=== PATIENT | female | born 1950 ===

== ENCOUNTER 2016-11-19 22:12 | Inpatient (IN) | payer MEDICARE, OTHER ==
[2016-11-19] MEDS ORDERED: HYOSCYAMINE SULFATE ODT 0.125 MG TAB.SUBL SL ONE (22:40)
[2016-11-19] MEDS ORDERED: KETOROLAC 30 MG/ML VIAL IVP ONE (22:40)
--- NOTE | 2016-11-19 22:41 | Emergency Department Record ---
History of Present Illness - General Chief Complaint: Abdominal Pain Stated Complaint: LOWER LT ABDOMINAL PAIN Time Seen by Provider: 11/19/16 22:17 Source: Patient Mode of Arrival: Ambulatory Limitations: No limitations - History of Present Illness Initial Comments: 66 yo female presents to ED with a CC of worsening LLQ abdominal pain that began 2-3 days ago intermittently, but worsened this afternoon. Patient reports previous episodes of diverticulitis resulting in abscess several years ago, treated with IV antibiotics as IV drainage was not possible. Patient denies fevers, chills, or change in stools. MD Complaint: Abdominal pain Onset/Timin -: Hour(s) Location: LLQ Radiation: Back Migration to: No migration Severity: Moderate Quality: Aching Consistency: Constant Improves With: Nothing Worsens With: Nothing Associated Symptoms: Denies other symptoms - Related Data Patient : No Home Medications Medication Instructions Recorded Confirmed Last Taken Alendronate Sodium [Alendronate 11/19/16 Unknown Sodium] Amitriptyline HCl [Amitriptyline 11/19/16 Unknown HCl] Celecoxib [Celecoxib] 11/19/16 Unknown Hydrochlorothiazide 11/19/16 Unknown [Hydrochlorothiazide] Hydrocodone/Acetaminophen 11/19/16 Unknown [Hydrocodon-Acetaminophen 5-325] Levalbuterol Tartrate [Xopenex Hfa] 11/19/16 11/19/16 Unknown Losartan Potassium [Losartan 11/19/16 Unknown Potassium] Mirabegron [Myrbetriq] 11/19/16 Unknown Omeprazole [Prilosec] 11/19/16 Unknown Trazodone HCl [Desyrel] 11/19/16 Unknown Allergies Allergy/AdvReac Type Severity Reaction Status Date / Time ciprofloxacin [From Cipro] Allergy ANAPHYLAXIS Verified 11/19/16 22:23 ciprofloxacin HCl Allergy ANAPHYLAXIS Verified 11/19/16 22:23 [From Cipro] hydromorphone HCl Allergy PT UNSURE Verified 11/19/16 22:23 [From Dilaudid] OF REACTION levofloxacin [From Levaquin] Allergy ANAPHYLAXIS Verified 11/19/16 22:23 Penicillins Allergy PT UNSURE Verified 11/19/16 22:23 OF REACTION sumatriptan [From Imitrex] Allergy PT UNSURE Verified 11/19/16 22:23 OF REACTION sumatriptan succinate Allergy PT UNSURE Verified 11/19/16 22:23 [From Imitrex] OF REACTION Travel Screening - Travel/Exposure Within Last 30 Days Have you traveled within the last 30 days?: No - Travel/Exposure Within Last Year Have you traveled outside the [place] in the last year?: No - Additonal Travel Details Have you been exposed to anyone with a communicable illness?: No - Travel Symptoms Symptom Screening: None Review of Systems Constitutional: Denies: Chills, Fever, Malaise, Night sweats Eyes: Denies: Eye discharge, Eye pain ENT: Denies: Congestion, Ear pain, Epistaxis Respiratory: Denies: Cough, Dyspnea Cardiovascular: Denies: Chest pain, Dyspnea on exertion Endocrine: Denies: Fatigue, Heat or cold intolerance Gastrointestinal: Reports: Abdominal pain. Denies: Constipation, Nausea, Vomiting Genitourinary: Denies: Dysuria, Frequency, Hematuria, Incontinence Musculoskeletal: Denies: Arthralgia, Back pain, Gout, Joint swelling Skin: Denies: Lesions, Pruritus Neurological: Denies: Abnormal gait, Confusion, Headache, Seizure Psychiatric: Denies: Anxiety Hematological/Lymphatic: Denies: Anemia, Blood Clots Past Medical History - SOCIAL HISTORY Smoking Status: Never smoker Alcohol Use: None Drug Use: None - RESPIRATORY Hx Respiratory Disorders: Yes Hx Asthma: Yes (SEASONAL ALLERGIES, WHEEZES) - CARDIOVASCULAR Hx Cardio Disorders: Yes Hx Heart Attack: Yes (STATES VERY SMALL [place] DX WHEN HX OF HEART CATH 10 YRS AGO) Hx Hypertension: Yes - NEURO Hx Neuro Disorders: No - GI Hx GI Disorders: Yes Hx Diverticulitis: Yes Hx Reflux: Yes Hx Hiatal Hernia: Yes - Hx Genitourinary Disorders: No - ENDOCRINE Hx Endocrine Disorders: No - MUSCULOSKELETAL Hx Musculoskeletal Disorders: Yes Hx Arthritis: Yes (SEVERE LOW BACK PAIN, FACET SYNDROME INTERMITTENT NUMBNESS LF UPPER THIGH) - PSYCH Hx Psych Problems: No - HEMATOLOGY/ONCOLOGY Hx Hematology/Oncology Disorders: No Family Medical History Any Significant Family History?: No Hx Heart Disease: Father, Mother, Brother/Sister, Grandparents Physical Exam - General General Appearance: Alert, Oriented x3, Cooperative, Moderate distress Limitations: No limitations - Head Head exam: Atraumatic, Normocephalic, Normal inspection Head exam detail: negative: Abrasion, Contusion, Mccormick's sign, General tenderness, Hematoma, Laceration - Eye Eye exam: Normal appearance. negative: Conjunctival injection, Periorbital swelling, Periorbital tenderness, Scleral icterus - ENT Ear exam: negative: Auricular hematoma, Auricular trauma Nasal Exam: negative: Active bleeding, Discharge, Dried blood, Foreign body Mouth exam: negative: Drooling, Laceration, Muffled voice, Tongue elevation - Neck Neck exam: Normal inspection. negative: Meningismus, Tenderness - Respiratory Respiratory exam: Normal lung sounds bilaterally. negative: Rales, Respiratory distress, Rhonchi, Stridor - Cardiovascular Cardiovascular Exam: Regular rate, Normal rhythm, Normal heart sounds - GI/Abdominal GI/Abdominal exam: Soft, Tenderness (TTP LLQ with guarding present, no rebound) . negative: Rebound, Rigid - Rectal Rectal exam: Deferred - exam: Deferred - Extremities Extremities exam: Normal inspection. negative: Calf tenderness, Pedal edema, Tenderness - Back Back exam: Denies: CVA tenderness (R), CVA tenderness (L) - Neurological Neurological exam: Alert, Normal gait, Oriented X3 - Psychiatric Psychiatric exam: Normal affect, Normal mood - Skin Skin exam: Normal color. negative: Abrasion Type of lesion: negative: abrasion Course Vital Signs 11/19/16 22:19 Temperature 97.4 F L Pulse Rate 98 H Respiratory 25 H Rate Blood Pressure 171/97 Pulse Ox 97 - Reevaluation(s) Reevaluation #1: 11/19/16 23:09 Labs reviewed and are grossly unremarkable for an acute process. Reevaluation #2: 11/20/16 00:51 Patient is back from CT imaging, reports that she is willing to take something stronger for her pain symptoms at this time. Morphine ordered. Reevaluation #3: 11/20/16 01:01 CT Abdomen and Pelvis: Extensive diverticulosis, ? mild diverticulitis, no abscess. Rocephin and Flagyl ordered to initiate treatment, will reassess patient's pain in 20-30 minutes. Reevaluation #4: 11/20/16 01:41 Patient reassessed following both Dilaudid and Morphine, pain improved from 7/ 10 to 4/10. Will admit for pain control as well as failed outpatient treatment failure for diverticulitis. Patient agrees with admission as discussed. Medical Decision Making - Lab Data Result diagrams: 11/19/16 22:40 11/19/16 22:40 Disposition Disposition: Admit Clinical Impression: Intractable abdominal pain Diverticulitis Qualifiers: Diverticulitis site: large intestine Diverticulitis bleeding: without bleeding Diverticulitis complication: without perforation or abscess Qualified Code(s): K57.32 - Diverticulitis of large intestine without perforation or abscess without bleeding Disposition: Still a Patient at [facility] Decision to Admit: Admit from ER Decision to Admit Date: 11/20/16 Decision to Admit Time: 01:31 Condition: (2) Stable Forms: Patient Portal Access Time of Disposition: :43
[2016-11-19 22:51] LABS: BASO % 0.2 % (0-6); EOS % 2.8 % (0-6); LYMPH % 32.4 % (16-45); MEAN CELL VOLUME 91.9 fl (81-97); MEAN CORPUSCULAR HEMOGLOBIN 31.4 pg (27-33); MEAN CORPUSCULAR HGB CONC 34.1 g/dl (32-36); MEAN PLATELET VOLUME 10.5 fl (7.4-10.4); MONO % 7.6 % (0-9); PLATELET COUNT 332 K/uL (130-400); RED BLOOD COUNT 4.46 M/uL (3.80-5.40); RED CELL DISTRIBUTION WIDTH 13.5 % (11.5-14.5); WHITE BLOOD COUNT W/O DIFF 8.5 K/uL (4.2-12.2)
[2016-11-19 23:01] LABS: LACTIC ACID 1.4 mmol/L (0.7-2.1)
[2016-11-19 23:06] LABS: ALB/GLOB RATIO 1.8 (1.1-1.8); ALBUMIN 4.8 gm/dL (3.5-5.0); ALKALINE PHOSPHATASE 100 U/L (38-126); ALT/SGPT 48 U/L (9-52); AST/SGOT 23 U/L (14-36); BLOOD UREA NITROGEN 21 mg/dL (7-17); CREATININE 0.7 mg/dL (0.52-1.04); EST GLOMERULAR FILTRATION RATE > 60 ml/min; GLUCOSE,RANDOM 111 mg/dL (70-110); TOTAL PROTEIN 7.5 gm/dL (6.3-8.2)
[2016-11-19 23:07] LABS: LIPASE 68 U/L (23-300)
[2016-11-20] MEDS ORDERED: MORPHINE SULFATE 5 MG/ML PFS IVP ONE (00:50)
[2016-11-20] MEDS ORDERED: CEFTRIAXONE SODIUM 1 GM in 0.9 % SODIUM CHLORIDE 100ML 100 ML IVPB ONE (01:02)
[2016-11-20] MEDS ORDERED: METRONIDAZOLE IVPB 500 MG in SODIUM CHLORIDE 1 BAG IVPB ONE (01:02)
[2016-11-20] MEDS ORDERED: HYDROMORPHONE HCL 1 MG/ML CPJ IVP ONE (01:16)
[2016-11-20] MEDS ORDERED: ACETAMINOPHEN 500 MG TABLET PO PRN (02:32)
[2016-11-20] MEDS ORDERED: CEFTRIAXONE SODIUM 1 GM in 0.9 % SODIUM CHLORIDE 100ML 100 ML IVPB SCH (02:32)
[2016-11-20] MEDS: METRONIDAZOLE IVPB 500 MG in SODIUM CHLORIDE 1 BAG IVPB SCH ×3 (02:34→20:45)
[2016-11-20] MEDS: HYDROMORPHONE HCL 1 MG/ML CPJ IVP PRN ×3 (03:59→10:24)
[2016-11-20] MEDS: 0.9 % SODIUM CHLORIDE 1000ML 1,000 ML IV PRN ×2 (06:29→16:46)
[2016-11-20] MEDS: ONDANSETRON HCL IV 4 MG/2 ML VIAL IVP PRN (08:05)
[2016-11-20] MEDS ORDERED: HYDROCHLOROTHIAZIDE 12.5 MG PO SCH (10:00)
[2016-11-20] MEDS ORDERED: Non-Formulary MISC (Losartan Potassium [Losartan Potassium] 50 MG) PO SCH (10:00)
[2016-11-20] MEDS ORDERED: Non-Formulary MISC (Alendronate Sodium [Alendronate Sodium] 70 MG) PO SCH (10:00)
[2016-11-20] MEDS ORDERED: HYDROCHLOROTHIAZIDE 12.5 MG CAPSULE PO SCH (10:00)
[2016-11-20] MEDS: MORPHINE SULFATE 5 MG/ML PFS IVP PRN ×4 (13:14→23:54)
[2016-11-20] MEDS: LOSARTAN POTASSIUM 25 MG TABLET PO SCH (13:18)
[2016-11-20] MEDS: AMITRIPTYLINE 10 MG TAB PO SCH (13:18)
[2016-11-20] MEDS: PROMETHAZINE HCL 25 MG/ML VIAL IVP PRN ×3 (14:41→23:53)
[2016-11-20] MEDS: ERTAPENEM SODIUM 1 G in 0.9 % SODIUM CHLORIDE 100ML 100 ML IVPB SCH (16:45)
[2016-11-20] MEDS: ENOXAPARIN 40 MG/0.4 ML SYR SQ SCH (16:45)
[2016-11-20] MEDS ORDERED: Non-Formulary MISC (Mirabegron [Myrbetriq] 50 MG) PO SCH (22:00)
[2016-11-20] MEDS: PANTOPRAZOLE SODIUM 40 MG TABLET PO SCH (23:50)
[2016-11-20] MEDS: TRAZODONE 50 MG TABLET PO SCH (23:51)
[2016-11-21] MEDS ORDERED: CEFTRIAXONE SODIUM 1 GM in 0.9 % SODIUM CHLORIDE 100ML 100 ML IVPB SCH (02:00)
[2016-11-21] MEDS: METRONIDAZOLE IVPB 500 MG in SODIUM CHLORIDE 1 BAG IVPB SCH ×2 (03:44→10:39)
[2016-11-21] MEDS: MORPHINE SULFATE 5 MG/ML PFS IVP PRN ×5 (03:46→17:49)
[2016-11-21] MEDS: 0.9 % SODIUM CHLORIDE 1000ML 1,000 ML IV PRN ×2 (06:23→17:52)
[2016-11-21] MEDS: PROMETHAZINE HCL 25 MG/ML VIAL IVP PRN ×4 (06:23→18:25)
--- NOTE | 2016-11-21 07:26 | CT SCAN REPORT ---
EXAM: CT SCAN OF THE ABDOMEN AND PELVIS HISTORY: PATIENT IS A 66-YEAR-OLD FEMALE WITH GENERALIZED ABDOMINAL PAIN. PATIENT HAS LEFT LOWER QUADRANT PAIN TIMES TWO DAYS. TECHNIQUE: Serial axial CT scan of the abdomen and pelvis was performed at 3.75 mm intervals from the dome of the diaphragm down to the pubic symphysis following the intravenous and oral administration of contrast. No comparison CT's were available. FINDINGS: The lung windows of the lung bases demonstrate no CT evidence of a focal infiltrate or pleural effusion. The visualized heart size and contour is within normal limits. The liver, spleen, pancreas, and bilateral adrenal glands are unremarkable. The gallbladder is not visualized. There is no CT evidence of hydronephrosis or hydroureter. No renal or ureteral calculi are noted. Multiple parapelvic cysts are identified. The contour, caliber, and flow within the abdominal aorta is within normal limits. There is no CT evidence of retroperitoneal, pelvic, or inguinal lymphadenopathy. The bowel gas pattern is nonspecific and nonobstructive. Multiple colonic diverticula are noted without CT evidence of diverticulitis. There is no CT evidence of free intraperitoneal fluid or free intraperitoneal air. 13 mm umbilical hernia is noted with herniated omental fat. The urinary bladder is unremarkable. The uterus is absent. Bone windows demonstrate no CT evidence of a fracture or dislocation of the visualized osseous structures of the abdomen and pelvis. IMPRESSION: 1. MULTIPLE COLONIC DIVERTICULA ARE NOTED WITHOUT CT EVIDENCE OF DIVERTICULITIS. OTHERWISE NO CT EVIDENCE OF AN ACUTE INTRAABDOMINAL PROCESS. 2. SMALL UMBILICAL HERNIA IS NOTED DISCUSSED ABOVE. JOB NUMBER: [id number] MTDD
[2016-11-21] MEDS: ONDANSETRON HCL IV 4 MG/2 ML VIAL IVP PRN (07:53)
--- NOTE | 2016-11-21 08:50 | History and Physical Report ---
DATE OF DICTATION: 11/20/2016. CHIEF COMPLAINT: Left lower quadrant abdominal pain. HISTORY OF PRESENT ILLNESS: This 66-year-old female presented with two to three days of left lower quadrant abdominal pain and a history of diverticulitis. The vomiting started today. She thinks it might be the Dilaudid which is causing her nausea and vomiting. We switched to morphine to see if that would be a little bit easier on her system. PAST MEDICAL HISTORY: Diverticulitis; this is her fourth episode of it. She also has asthma. She has never smoked. She has arthritis, and fibromyalgia. She had a myocardial infarction in 1999. She has a hiatal hernia and has surgery scheduled in ten days in [place] at [facility]. Her primary doctor is Dr. Amelie Lopez. She also has chronic low back pain, arthritis, and gastroesophageal reflux disease. PAST SURGICAL HISTORY: Open reduction and internal fixation of the left middle finger, tonsillectomy, right total knee arthroplasty, left anterior cruciate ligament surgery, hysterectomy, appendectomy, left open reduction and internal fixation of the patella. MEDICATIONS ON ADMISSION: Fosamax 70 mg once a week, amitriptyline 10 mg daily , Losartan 50 mg daily, hydrochlorothiazide 12.5 mg daily, mirabegron 50 mg at h.s., trazodone 50 mg at h.s., omeprazole 20 mg at h.s. Xopenex inhaler p.r.n. which she has not used in over a year. She has also used [place] occasionally, but she states she does not use it much, and she does not like using that drug. ALLERGIES: She is allergic to ciprofloxacin which caused a severe anaphylactic type reaction. Levofloxacin. She is allergic to penicillin which causes a rash. Sumatriptan which caused chest pain which is more of an adverse reaction. FAMILY/PSYCHOSOCIAL HISTORY: Heart disease in her father, mother, brother, and sister and grandparents. She has never smoked cigarettes. No alcohol or drug use. REVIEW OF SYSTEMS: HEENT: She did have a cold two weeks ago, but that has resolved. No headaches anymore. Cardiovascular: She had a myocardial infarction in 1999. Respiratory: She has asthma, but that has been pretty good for the last year. Gastrointestinal: See Chief Complaint. She has left lower quadrant abdominal pain. Today she has been vomiting. No diarrhea or bowel movements. Genitourinary: No dysuria, hematuria, frequency, or burning on urination. Musculoskeletal: Arthritis and low back pain. Neurologic: No cerebrovascular accident, paralysis, or paraesthesias. Gynecologic: No abnormal vaginal bleeding or abnormal breast masses. Integument: No rash, ulcers, changing moles, or yellow skin. PHYSICAL EXAMINATION: General: Height is 5 feet, 1 inches. Weight is 211 pounds. Vital Signs: Temperature is 97.6, pulse is 63, blood pressure is 137/69, respiratory rate is 16, pulse oximetry is 96% on room air. HEENT: Pupils are equal, round, and reactive to light and accommodation. Extraocular muscles are intact. The throat is clear. The nose is clear. The tympanic membranes are mazariegos. Neck: The neck is supple. No jugular venous distension. No hepatojugular reflex. No carotid bruit. The thyroid is smooth. Cardiovascular: Regular rate and rhythm without murmurs, clicks, rubs, or gallops. Respiratory: Clear to auscultation. Breath sounds are equal bilaterally. Abdomen: There is pain on palpation of the left lower quadrant. Soft. No rebound or rigidity. She has some guarding in the left lower quadrant. Extremities: No pitting edema. No cyanosis. No clubbing. Full range of motion. Peripheral pulses are good. Breasts, Gynecological, and Rectal Examinations: Deferred. Neurological Examination: Cranial nerves II through XII are intact. No gross defect. Sensation is normal. Strength is normal. Deep tendon reflexes are equal bilaterally. Babinski is negative. Mental Status: Alert and oriented times three. IMPRESSIONS: 1. Acute diverticulitis. 2. Status post gastroesophageal reflux disease. 3. Status post asthma. 4. Status post hiatal hernia with surgery scheduled at [facility] in [place] in 10 days. She may have to delay that. 5. Status post coronary artery disease with a myocardial infarction in 1999. PLAN: Intravenous pain control. Will add Phenergan for nausea. Add Invanz for antibiotics and discontinue the Rocephin. Surgical consultation tomorrow. Albert Samson D.O. Date Time JOB NUMBER: [id number] MTDD
[2016-11-21] MEDS: ENOXAPARIN 40 MG/0.4 ML SYR SQ SCH (10:17)
[2016-11-21] MEDS: AMITRIPTYLINE 10 MG TAB PO SCH ×2 (10:37→21:18)
[2016-11-21] MEDS: LOSARTAN POTASSIUM 25 MG TABLET PO SCH (10:37)
[2016-11-21] MEDS: ERTAPENEM SODIUM 1 G in 0.9 % SODIUM CHLORIDE 100ML 100 ML IVPB SCH (11:19)
--- NOTE | 2016-11-21 12:26 | RADIOLOGY REPORT ---
EXAM: ACUTE ABDOMEN SERIES WHICH INCLUDES A PA CHEST HISTORY: DIVERTICULITIS, ABDOMINAL PAIN, NAUSEA AND VOMITING. TECHNIQUE: PA view of the chest and supine and upright views of the abdomen were obtained. Comparison: No prior abdomen series or chest x-ray with which to compare. FINDINGS: CHEST: Torsion of the aorta. The heart size is at about the upper limits of normal. The lungs appear expanded with no acute infiltrate seen. No pleural effusion or pneumothorax evident. Mild spurring at the right acromioclavicular joint. ABDOMEN: There is residual contrast in the colon apparently related to a CT scan performed yesterday with oral contrast. The colon does not appear prominently distended. A couple air fluid levels in the mid to upper abdomen are in the small bowel probably representing a mild ileus with no prominently dilated air filled loops of small bowel identified. No free air identified. Prominent spurring in the thoracic spine and a mild lumbar curve to the left with degenerative change in the facets of the lower lumbar spine. Degenerative change at the pubic symphysis as well. IMPRESSION: 1. TORSION OF THE AORTA. 2. MILD ELEVATION OF THE RIGHT HEMIDIAPHRAGM. 3. NO DEFINITE ACUTE INFILTRATE SEEN. 4. RESIDUAL ORAL CONTRAST IN THE COLON. 5. A FEW AIR FLUID LEVELS IN THE SMALL BOWEL PROBABLY REPRESENTING A MILD ILEUS. 6. DEGENERATIVE CHANGES IN THE SPINE WITH A LUMBAR CURVE TO THE LEFT. JOB NUMBER: [id number] MTDD
[2016-11-21] MEDS: TRAZODONE 50 MG TABLET PO SCH (21:18)
[2016-11-21] MEDS: PANTOPRAZOLE SODIUM 40 MG TABLET PO SCH (21:19)
[2016-11-21] MEDS ORDERED: AL HYDROX/MAG HYDROX 30ML UD PO PRN (21:34)
[2016-11-22] MEDS: MORPHINE SULFATE 5 MG/ML PFS IVP PRN (00:49)
[2016-11-22] MEDS: 0.9 % SODIUM CHLORIDE 1000ML 1,000 ML IV PRN (07:11)
--- NOTE | 2016-11-22 08:08 | Medical Records Consult ---
DATE OF CONSULTATION: 11/21/16 PERSON WHO REQUESTED CONSULT: Albert Samson D.O. REASON FOR CONSULTATION: Left lower quadrant pain. INDICATIONS: Patient is a 66-year-old female who came to the hospital yesterday complaining of left lower quadrant pain. She stated the pain had started about three days prior. There is some mild radiation down to her pelvis. She does have some mild nausea with this. She was seen at [facility] where a full work-up was done. This did include CT scan as well as laboratory values. Laboratory evaluation revealed a white count of 8.5. CT scan was done which did show diffuse left lower quadrant diverticulosis without evidence of acute diverticulitis. There is no perforation, no abscess. The patient states that this is now her fourth episode of diverticulitis, two of which required prior hospitalizations. She was told at one point she had an abscess, but they were unable to drain this conservatively. She stated that they did recommend elective resection prior, but she never followed up with this. PAST MEDICAL HISTORY: Recurrent diverticulitis, COPD, hypertension, GERD, and depression. PAST SURGICAL HISTORY: Open cholecystectomy, open hysterectomy, and bilateral knee replacement. MEDICATIONS: She currently takes Celebrex, Hydrochlorothiazide, [place], Xopenex , Losartan, Prilosec, and Desyrel. ALLERGIES: CIPRO, DILAUDID, LEVAQUIN, AND IMITREX. SOCIAL HISTORY: Denies any tobacco or alcohol usage. PHYSICAL EXAMINATION: Her vital signs are stable, she is afebrile. HEART: Regular rate and rhythm. LUNGS: Decreased. ABDOMEN: Soft, obese. There is a well healed right subcostal Nina incision. There is also a well healed infraumbilical laparotomy scar noted. There is mild left lower quadrant tenderness. There is no guarding or rebound. No peritoneal signs noted. EXTREMITIES: Show no trace of edema. IMPRESSION: LEFT LOWER QUADRANT PAIN SECONDARY TO RECURRENT UNCOMPLICATED DIVERTICULITIS. I WOULD RECOMMEND CONTINUED IV ANTIBIOTICS UNTIL PAIN SUBSIDES. SHE NEEDS TO BE SENT HOME ON A LOW RESIDUE DIET. HER LAST COLONOSCOPY WAS TWO YEARS AGO WITH DR. PAULINO AT [facility]. SHE MAY WANT TO ENTERTAIN AN ELECTIVE RESECTION AT SOME POINT DUE TO THIS RECURRENT NATURE AND I WOULD BE HAPPY TO TALK ABOUT THIS AN OUTPATIENT WHEN SHE GETS OUT OF THE HOSPITAL. DIETARY SHOULD SEE HER FOR LOW RESIDUE DIET AND THIS WAS DISCUSSED WELL. PLEASE DO NOT HESITATE TO CONTACT ME IF I CAN BE OF ANY FURTHER ASSISTANCE. Chi Myrick D.O. Date & Time JOB NUMBER: [id number] MTDD
[2016-11-22] MEDS: LOSARTAN POTASSIUM 25 MG TABLET PO SCH (09:11)
[2016-11-22] MEDS: AMITRIPTYLINE 10 MG TAB PO SCH (09:11)
[2016-11-22] MEDS: ERTAPENEM SODIUM 1 G in 0.9 % SODIUM CHLORIDE 100ML 100 ML IVPB SCH (09:11)
[2016-11-22] MEDS: ENOXAPARIN 40 MG/0.4 ML SYR SQ SCH ×2 (09:12→09:18)
[2016-11-22] MEDS ORDERED: FLUCONAZOLE 100 MG TABLET PO SCH (10:00)
--- NOTE | 2016-11-22 13:11 | Discharge Note ---
Discharge Note - Date Date of Discharge Note: 11/22/16 Disposition: Home, Self-Care Condition: (2) Stable Additional Instructions: follow up with Dr. Lopez in 7-10 days follow up with dr. moscoso in 6 weeks low fiber diet for 4 weeks invanz 1 gm every day for 7 days Prescriptions: Hydrocodone/Acetaminophen [[place] 5mg/325mg] 1 tab PO Q6H PRN #30 tab PRN Reason: Pain - General Forms: Patient Portal Access
--- NOTE | 2016-11-22 13:26 | Discharge Note ---
Discharge Note - Date Date of Discharge Note: 11/22/16 Disposition: Home, Self-Care Condition: (2) Stable Additional Instructions: follow up with Dr. Carrizales in 7-10 days follow up with dr. moscoso in 6 weeks low fiber diet for 4 weeks bactrim DS twice a day for 10 days Prescriptions: Sulfamethoxazole/Trimethoprim [Bactrim Ds Tablet] 1 each PO BID #20 tablet Hydrocodone/Acetaminophen [[place] 5mg/325mg] 1 tab PO Q6H PRN #30 tab PRN Reason: Pain - General Referrals: MICHAEL CARRIZALES [Primary Care Provider] - Forms: Patient Portal Access
--- NOTE | 2016-11-22 13:32 | Discharge Note ---
Discharge Note - Date Date of Discharge Note: 11/22/16 Disposition: Home, Self-Care Condition: (2) Stable Instructions: Hydrocodone/Acetaminophen (By mouth), Low Fiber Diet (GEN) Additional Instructions: 2 Activity: Activity as tolerated 2 Diet: low fiber diet for 4 weeks 2 Consults: [] 2 Follow Up: [follow up with Dr. Lopez in 7-10 days, call to schedule appointment follow up with dr. moscoso in 6 weeks, call to schedule appointment] 2 Dressing/Wound Care: (Type) (Change) 2 Additional: [] Prescriptions: Sulfamethoxazole/Trimethoprim [Bactrim Ds Tablet] 1 each PO BID #20 tablet Fluconazole [Diflucan] 100 mg PO DAILY #3 tablet Hydrocodone/Acetaminophen [[place] 5mg/325mg] 1 tab PO Q6H PRN #30 tab PRN Reason: Pain - General Referrals: [facility] Specialty Clinics [Provider Group] Chi Moscoso [DOCTOR OF OSTEOPATH] - MICHAEL LOPEZ [Primary Care Provider] - Albert Samson, StefanOLobo [DOCTOR OF OSTEOPATH] - Forms: Patient Portal Access
[2016-11-26] MEDS ORDERED: Non-Formulary MISC (Alendronate Sodium [Alendronate Sodium] 70 MG) PO SCH (07:00)
== END 2016-11-22 14:04 | disposition home or self-care (01) | DRG 392 ==
LOC: ER 22:12 → MEDSURG 11-20 02:07 → OBSVTOIN 11-20 14:11
PROVIDERS: ADMIT Emergency Medicine; ATTEND Emergency Medicine
DX: K57.32 Diverticulitis of large intestine without perforation or abscess without bleeding (principal); M79.7 Fibromyalgia; E78.00 Pure hypercholesterolemia, unspecified; J45.909 Unspecified asthma, uncomplicated; I25.10 Atherosclerotic heart disease of native coronary artery without angina pectoris; I10 Essential (primary) hypertension
CPT/HCPCS: 99285 ×2; 96374; 96365; 96375; 83605; 83690; 85025; 80053; 74177; Q9967; J1980; J1885; J2405; J1170 ×3; J2270 ×2; 74022; 99223; 99233; 99239; J1650; J2550